=== PATIENT | female | born 1940 | race African-American/Black ===

== ENCOUNTER 2017-09-23 06:48 | Inpatient (IN) | payer MEDICARE, MEDICAID ==
[2017-09-23] VITALS (22 sets, daily range): BP systolic 102–172; BP diastolic 48–80
[~2017-09-23] VITALS: Ht 157.5 cm; Wt 68.0 kg
[~2017-09-23 06:48] MED LIST: ASPI-986 PO; DIGO125T82 PO; HYDR-523 PO; ISOS30TA6 PO; NIAC500T2 PO; RANO10003 PO; ROSU10TA PO; SOTA80TA PO
[2017-09-23] MEDS ORDERED: IODIXANOL 320MG/ML 200ML BOTTLE ONE (07:44)
[2017-09-23] MEDS ORDERED: LIDOCAINE HCL 1% 20ML VIAL (Pyxis) INJ ONE (07:44)
[2017-09-23] MEDS ORDERED: MIDAZOLAM HCL 2 MG/2 ML VIAL ONE (07:56)
[2017-09-23] MEDS ORDERED: FENTANYL CITRATE/PF 50MCG/ML 2ML VIAL ONE ×2 (07:57→09:38)
[2017-09-23] MEDS ORDERED: ATROPINE SULFATE 0.1MG/ML 10ML DISP.SYRIN ONE (08:25)
[2017-09-23] MEDS ORDERED: IOVERSOL 240MG/ML 100ML BOTTLE IV ONE (08:59)
[2017-09-23] MEDS ORDERED: ASPIRIN 325MG TABLET ONE (09:41)
[2017-09-23] MEDS ORDERED: CLOPIDOGREL 75MG TABLET ONE (09:41)
[2017-09-23] MEDS ORDERED: HEPARIN SODIUM 1,000 UNIT/1ML VIAL IV ONE (10:02)
[2017-09-23] MEDS ORDERED: NICARDIPINE 100MCG/ML 10ML VIAL (CATH LAB) IV ONE (10:02)
[2017-09-23] MEDS ORDERED: NITROGLYCERIN 50MCG/ML 10ML VIAL (CATH LAB) IV ONE (10:02)
[2017-09-23] MEDS ORDERED: PHENYLEPHRINE 100MCG/ML 10ML VIAL (CATH LAB) IV ONE (10:02)
[2017-09-23] MEDS ORDERED: MAGNESIUM/ALUMINUM HYDROXIDE/SIMETHICONE 30ML UDC PO PRN (10:45)
[2017-09-23] MEDS ORDERED: DEXTROSE 50% WATER 50ML SYRINGE IV PRN (11:45)
[2017-09-23] MEDS: INSULIN LISPRO 100 UNITS/ML SUBCUT SCH ×3 (12:20→21:00)
[2017-09-23] MEDS: BLOOD SUGAR DIAGNOSTIC STRIP TEST SCH ×3 (12:24→21:20)
[2017-09-23] MEDS ORDERED: CLONIDINE 0.1MG TABLET PO NR (12:30)
[2017-09-23] MEDS ORDERED: CLOP75TA16 PO (14:55)
[2017-09-23] MEDS ORDERED: GLIP5TAB12 PO (14:55)
[2017-09-23] MEDS ORDERED: ROSU5TAB PO (14:55)
[2017-09-23] MEDS ORDERED: CLONIDINE 0.1MG TABLET PO PRN (15:00)
[2017-09-23] MEDS ORDERED: ZOLPIDEM TARTRATE 5MG TABLET PO PRN (22:30)
[2017-09-23] MEDS ORDERED: MORPHINE SULFATE 4 MG/ML CPJ (NOT FOR IM USE) IV PRN (22:30)
[2017-09-24] VITALS (10 sets, daily range): BP systolic 112–155; BP diastolic 48–78
[2017-09-24] MEDS: BLOOD SUGAR DIAGNOSTIC STRIP TEST SCH ×2 (06:42→11:16)
[2017-09-24] MEDS: INSULIN LISPRO 100 UNITS/ML SUBCUT SCH ×2 (06:43→12:02)
[2017-09-24 07:07] LABS: BASOPHILS % 0.5 % (0.0-2.0); EOSINOPHILS % 1.6 % (0.0-5.0); HEMATOCRIT. 32.6 % (36.0-48.0); HEMOGLOBIN. 11.4 g/dL (12.0-16.0); LYMPHOCYTES % 16.6 % (20.0-50.0); MEAN CORPUSCULAR HEMOGLOBIN 32.1 pg (28.0-32.0); MEAN CORPUSCULAR VOLUME 92.2 fL (81.0-99.0); MEAN PLATELET VOLUME 7.9 fl (7.4-10.4); MONOCYTES % 12.5 % (2.0-8.0); NEUTROPHILS % 68.8 % (40.0-76.0); PLATELET 115 x1000/uL (130-400); RED BLOOD CELL COUNT 3.54 mill/uL (4.2-5.4); RED CELL DISTRIBUTION WIDTH 13.3 % (11.6-14.6)
[2017-09-24 07:48] LABS: CHLORIDE 107 mEq/L (98-107)
[2017-09-24] MEDS ORDERED: ASPI-1158 PO (08:01)
[2017-09-24] MEDS ORDERED: CLOPIDOGREL 75MG TABLET PO SCH (09:00)
[2017-09-24] MEDS ORDERED: ASPIRIN 81MG TABLET PO SCH (09:00)
== END 2017-09-24 13:50 | disposition home or self-care (01) | DRG 215 ==
LOC: CCL 06:48 → 3WST 06:49
PROVIDERS: ADMIT Specialist; ATTEND Specialist
PROC: 027034Z Dilation of Coronary Artery, One Artery with Drug-eluting Intraluminal Device, Percutaneous Approach (ICD-10-PCS; principal; 2017-09-23)
PROC: 5A0221D Assistance with Cardiac Output using Impeller Pump, Continuous (ICD-10-PCS; 2017-09-23)
PROC: B2111ZZ Fluoroscopy of Multiple Coronary Arteries using Low Osmolar Contrast (ICD-10-PCS; 2017-09-23)
PROC: 4A023N7 Measurement of Cardiac Sampling and Pressure, Left Heart, Percutaneous Approach (ICD-10-PCS; 2017-09-23)
PROC: 02HA3RJ Insertion of Short-term External Heart Assist System into Heart, Intraoperative, Percutaneous Approach (ICD-10-PCS; 2017-09-23)
DX: I25.110 Atherosclerotic heart disease of native coronary artery with unstable angina pectoris (principal); E11.9 Type 2 diabetes mellitus without complications; E78.5 Hyperlipidemia, unspecified; I10 Essential (primary) hypertension; Z88.2 Allergy status to sulfonamides
CPT/HCPCS: 33990; 36415; 80048; 82962; 85025; 85347; 93005; 93458; C1725; C1726; C1760; C1769; C1887; C1893; J0461; J1644; J1815; J2250; J2370; J3010; J3490; Q9967

== ENCOUNTER 2020-02-06 16:19 | Inpatient (IN) | payer MEDICARE ==
[~2020-02-06] VITALS: Ht 157.5 cm; Wt 63.0 kg
[~2020-02-06 16:19] MED LIST changes: +ASPI-1158 PO; -ASPI-986 PO; +ATOR20TA65 MT; +CLOP75TA4 PO; +DIGO125T80 PO; -DIGO125T82 PO; +FOLI-43 MT; +GLIP5TAB12 PO; +GLYB5TAB7 MT; -NIAC500T2 PO; +POTA20TA12 MT; -ROSU10TA PO; +[UNRECOGNIZED DRUG - CODE] PO
[2020-02-06] MEDS ORDERED: ASPIRIN 81MG TABLET PO ONE (17:15)
[2020-02-06 17:33] LABS: EOSINOPHILS % 2.4 % (0.0-5.0); HEMATOCRIT. 32.9 % (36.0-48.0); HEMOGLOBIN. 11.2 g/dL (12.0-16.0); MEAN CORPUSCULAR HEMOGLOBIN 28.6 pg (28.0-32.0); MEAN CORPUSCULAR VOLUME 83.8 fL (81.0-99.0); MEAN PLATELET VOLUME 7.6 fl (7.4-10.4); MONOCYTES % 13.5 % (2.0-8.0); NEUTROPHILS % 57.1 % (40.0-76.0); PLATELET 162 x1000/uL (130-400); RED BLOOD CELL COUNT 3.92 mill/uL (4.2-5.4); RED CELL DISTRIBUTION WIDTH 13.9 % (11.6-14.6)
[2020-02-06 17:41] LABS: CHLORIDE 108 mEq/L (98-107)
[2020-02-06 17:45] LABS: D-DIMER 3.69 mg/L FEU (<0.50); INR 1.1; PARTIAL THROMBOPLASTIN TIME 26.8 sec (23.4-31.0); PROTHROMBIN TIME 11.2 sec (9.6-11.0)
[2020-02-06] MEDS ORDERED: IOHEXOL-350 100 ML BOTTLE ONE (18:59)
[2020-02-06] MEDS ORDERED: DEXTROSE 50% WATER 50ML SYRINGE IV ONE (20:00)
[2020-02-06] MEDS ORDERED: ONDANSETRON HCL 4MG/2ML INJ IV PRN (22:15)
[2020-02-06] MEDS ORDERED: IPRATROPIUM/ALBUTEROL 0.5-3(2.5)MG/3ML NEB HHN PRN (22:15)
[2020-02-06] MEDS ORDERED: ACETAMINOPHEN 325MG TABLET PO PRN (22:15)
[2020-02-06] MEDS ORDERED: HYDROCODONE/ACETAMINOPHEN 5/325MG TABLET PO PRN (22:15)
[2020-02-07] VITALS (20 sets, daily range): BP systolic 140–202; BP diastolic 62–109
[2020-02-07 05:26] LABS: CHLORIDE 109 mEq/L (98-107)
[2020-02-07 05:29] LABS: HEMATOCRIT. 32.8 % (36.0-48.0); HEMOGLOBIN. 11.3 g/dL (12.0-16.0); MEAN CORPUSCULAR HEMOGLOBIN 28.6 pg (28.0-32.0); MEAN CORPUSCULAR VOLUME 82.8 fL (81.0-99.0); MEAN PLATELET VOLUME 7.5 fl (7.4-10.4); PLATELET 162 x1000/uL (130-400); RED BLOOD CELL COUNT 3.96 mill/uL (4.2-5.4); RED CELL DISTRIBUTION WIDTH 14.5 % (11.6-14.6)
[2020-02-07 05:38] LABS: LDL CHOLESTEROL 65 mg/dL (5-100)
[2020-02-07 05:39] LABS: CREATINE KINASE 35 IU/L (26-192); HDL CHOLESTEROL 34 mg/dL (40-59); T4 FREE 1.49 ng/dL (0.76-1.46)
[2020-02-07] MEDS: ASPIRIN 81MG EC TABLET PO SCH (08:15)
[2020-02-07] MEDS ORDERED: NICARDIPINE 100MCG/ML 10ML VIAL (CATH LAB) IV ONE (11:07)
[2020-02-07] MEDS ORDERED: NITROGLYCERIN 50MCG/ML 10ML VIAL (CATH LAB) IV ONE (11:07)
[2020-02-07] MEDS ORDERED: HEPARIN SODIUM 1,000 UNIT/1ML VIAL IV ONE (11:07)
[2020-02-07 11:44] LABS: PLATELET ESTIMATE NORMAL
[2020-02-07] MEDS ORDERED: DEXTROSE 50% WATER 50ML SYRINGE IV PRN (13:15)
[2020-02-07] MEDS ORDERED: HYDRALAZINE 20MG/ML VIAL IV PRN (14:15)
[2020-02-07] MEDS ORDERED: MIDAZOLAM HCL 2 MG/2 ML VIAL ONE (14:30)
[2020-02-07] MEDS ORDERED: LIDOCAINE HCL 1% 20ML VIAL (Pyxis) INJ ONE (14:30)
[2020-02-07] MEDS ORDERED: FENTANYL CITRATE/PF 50MCG/ML 2ML VIAL ONE (14:30)
[2020-02-07] MEDS ORDERED: IOHEXOL-300 100 ML BOTTLE ONE (14:33)
[2020-02-07] MEDS ORDERED: LORAZEPAM 2MG/ML CPJ IV PRN (14:45)
[2020-02-07] MEDS ORDERED: IPRATROPIUM/ALBUTEROL 0.5-3(2.5)MG/3ML NEB HHN PRN (14:45)
[2020-02-07] MEDS ORDERED: DEXT 5%/0.45% NACL 1000ML 1,000 ML IV SCH (14:45)
[2020-02-07] MEDS ORDERED: BISACODYL 10MG SUPP PR PRN (14:45)
[2020-02-07] MEDS ORDERED: LACTULOSE 20G/30ML UDC PO PRN (14:45)
[2020-02-07 14:48] LABS: CREATINE KINASE 38 IU/L (26-192)
[2020-02-07] MEDS ORDERED: IODIXANOL 320MG/ML 100 ML BOTTLE IV ONE ×2 (15:35→15:44)
[2020-02-07] MEDS ORDERED: ACETAMINOPHEN 325MG TABLET PO PRN (16:00)
[2020-02-07] MEDS ORDERED: SODIUM CHLORIDE 0.45% 1,000 ML IV SCH (16:00)
[2020-02-07] MEDS ORDERED: ATROPINE SULFATE 1MG/10ML SYR IV PRN (16:00)
[2020-02-07] MEDS ORDERED: MORPHINE SULFATE 2 MG/ML CPJ (NOT FOR IM USE) IV PRN ×2 (16:00)
[2020-02-07] MEDS ORDERED: CLOPIDOGREL 75MG TABLET ONE (16:06)
[2020-02-07] MEDS: FAMOTIDINE 20MG/2ML VIAL IV SCH (16:24)
[2020-02-07] MEDS: BLOOD SUGAR DIAGNOSTIC STRIP TEST SCH ×2 (16:31→21:53)
[2020-02-07] MEDS: INSULIN LISPRO 100 UNITS/ML SUBCUT SCH ×2 (16:32→21:00)
[2020-02-07] MEDS ORDERED: ATORVASTATIN CALCIUM 40MG TABLET PO SCH (21:00)
[2020-02-07] MEDS: SOTALOL HCL 80MG TABLET PO SCH (21:27)
[2020-02-08] VITALS (10 sets, daily range): BP systolic 137–155; BP diastolic 53–68
[2020-02-08] MEDS: BLOOD SUGAR DIAGNOSTIC STRIP TEST SCH ×2 (06:50→11:36)
[2020-02-08] MEDS: INSULIN LISPRO 100 UNITS/ML SUBCUT SCH ×2 (07:20→12:12)
[2020-02-08 07:43] LABS: CHLORIDE 104 mEq/L (98-107)
[2020-02-08 07:55] LABS: BASOPHILS % 0.3 % (0.0-2.0); EOSINOPHILS % 1.1 % (0.0-5.0); HEMATOCRIT. 35.3 % (36.0-48.0); HEMOGLOBIN. 12.2 g/dL (12.0-16.0); LYMPHOCYTES % 17.9 % (20.0-50.0); MEAN CORPUSCULAR HEMOGLOBIN 28.9 pg (28.0-32.0); MEAN CORPUSCULAR VOLUME 83.4 fL (81.0-99.0); MEAN PLATELET VOLUME 7.7 fl (7.4-10.4); MONOCYTES % 11.8 % (2.0-8.0); NEUTROPHILS % 68.9 % (40.0-76.0); PLATELET 167 x1000/uL (130-400); RED BLOOD CELL COUNT 4.24 mill/uL (4.2-5.4); RED CELL DISTRIBUTION WIDTH 14.1 % (11.6-14.6)
[2020-02-08] MEDS: ASPIRIN 81MG EC TABLET PO SCH (08:25)
[2020-02-08] MEDS: FAMOTIDINE 20MG/2ML VIAL IV SCH (08:25)
[2020-02-08] MEDS: SOTALOL HCL 80MG TABLET PO SCH (08:25)
[2020-02-08] MEDS ORDERED: CLOPIDOGREL 75MG TABLET PO SCH (09:00)
== END 2020-02-08 15:59 | disposition home or self-care (01) | DRG 247 ==
LOC: ER 16:19 → MICUSO 18:49 → 3WST 02-07 13:17
PROVIDERS: ADMIT Internal Medicine; ATTEND Internal Medicine
PROC: 4A023N7 Measurement of Cardiac Sampling and Pressure, Left Heart, Percutaneous Approach (ICD-10-PCS; principal; 2020-02-07)
PROC: 027034Z Dilation of Coronary Artery, One Artery with Drug-eluting Intraluminal Device, Percutaneous Approach (ICD-10-PCS; 2020-02-07)
PROC: B2111ZZ Fluoroscopy of Multiple Coronary Arteries using Low Osmolar Contrast (ICD-10-PCS; 2020-02-07)
PROC: B2131ZZ Fluoroscopy of Multiple Coronary Artery Bypass Grafts using Low Osmolar Contrast (ICD-10-PCS; 2020-02-07)
PROC: B2151ZZ Fluoroscopy of Left Heart using Low Osmolar Contrast (ICD-10-PCS; 2020-02-07)
PROC: B2181ZZ Fluoroscopy of Left Internal Mammary Bypass Graft using Low Osmolar Contrast (ICD-10-PCS; 2020-02-07)
DX: I25.10 Atherosclerotic heart disease of native coronary artery without angina pectoris (principal); I10 Essential (primary) hypertension; E78.5 Hyperlipidemia, unspecified; E11.65 Type 2 diabetes mellitus with hyperglycemia; E11.649 Type 2 diabetes mellitus with hypoglycemia without coma; D64.9 Anemia, unspecified; E05.90 Thyrotoxicosis, unspecified without thyrotoxic crisis or storm; M19.90 Unspecified osteoarthritis, unspecified site; Z95.1 Presence of aortocoronary bypass graft; Z79.02 Long term (current) use of antithrombotics/antiplatelets; Z79.84 Long term (current) use of oral hypoglycemic drugs; Z79.899 Other long term (current) drug therapy; Z95.810 Presence of automatic (implantable) cardiac defibrillator; G62.9 Polyneuropathy, unspecified; Z90.49 Acquired absence of other specified parts of digestive tract; Z88.2 Allergy status to sulfonamides; Z88.8 Allergy status to other drugs, medicaments and biological substances; Z79.1 Long term (current) use of non-steroidal anti-inflammatories (NSAID)
CPT/HCPCS: 36415; 71045; 71275; 80048; 80053; 80061; 80162; 82550; 82962; 83036; 83880; 84439; 84443; 84484; 85025; 85347; 85379; 92928; 93005; 93306; 93459; 99285; C1760; C1769; C1874; C1887; J0360; J1644; J1815; J2250; J2270; J2405; J3010; J3490; Q9967

== ENCOUNTER 2021-08-03 15:10 | Inpatient (IN) | payer MEDICARE, MEDICAID ==
[~2021-08-03] VITALS: Ht 157.5 cm; Wt 63.5 kg
[~2021-08-03 15:10] MED LIST changes: -ASPI-1158 PO; +ASPI-1406 PO; +CLOP-31 PO; -CLOP75TA4 PO; -ISOS30TA6 PO; +ISOS30TA91 PO
[2021-08-03] MEDS ORDERED: ACETAMINOPHEN 325MG TABLET PO ONE (15:45)
[2021-08-03] MEDS ORDERED: TETANUS, DIPHTHERIA, PERTUSSIS VAC/PF 0.5ML (>10YR OLD) IM ONE (16:15)
[2021-08-03] MEDS ORDERED: CEPHALEXIN 250MG CAPSULE PO ONE (17:00)
[2021-08-03 17:39] LABS: BASOPHILS % 0.9 % (0.0-2.0); EOSINOPHILS % 4.2 % (0.0-5.0); HEMATOCRIT. 35.1 % (36.0-48.0); HEMOGLOBIN. 11.8 g/dL (12.0-16.0); MEAN CORPUSCULAR HEMOGLOBIN 30.4 pg (28.0-32.0); MEAN CORPUSCULAR VOLUME 90.6 fL (81.0-99.0); MEAN PLATELET VOLUME 8.3 fl (7.4-10.4); MONOCYTES % 11.4 % (2.0-8.0); NEUTROPHILS % 65.5 % (40.0-76.0); PLATELET 103 x1000/uL (130-400); RED BLOOD CELL COUNT 3.87 mill/uL (4.2-5.4); RED CELL DISTRIBUTION WIDTH 13.1 % (11.6-14.6)
[2021-08-03 17:45] LABS: CHLORIDE 107 mEq/L (98-107)
[2021-08-03 18:56] LABS: CLARITY URINE CLEAR (CLEAR); COLOR URINE YELLOW (YELLOW); KETONES URINE NEGATIVE (NEGATIVE); LEUKOCYTE ESTERASE URINE NEGATIVE (NEGATIVE); NITRITE URINE NEGATIVE (NEGATIVE); OCCULT BLOOD URINE NEGATIVE (NEGATIVE); PH URINE 7.5 (4.5-8.0); PROTEIN URINE TRACE (NEGATIVE); SPECIFIC GRAVITY URINE 1.007 (1.005-1.030); UROBILINOGEN URINE 0.2 E.U./dL (0.2-1.0)
[2021-08-03] MEDS ORDERED: DEXTROSE 50% WATER 50ML SYRINGE IV PRN (21:30)
[2021-08-03] MEDS: INSULIN LISPRO (LOW DOSE) 100 UNITS/ML SUBCUT SCH (21:30)
[2021-08-03] MEDS: BLOOD SUGAR DIAGNOSTIC STRIP TEST SCH (21:36)
[2021-08-03] MEDS: ACETAMINOPHEN 325MG TABLET PO PRN (23:26)
[2021-08-04 09:30] VITALS: BP 160/74
[2021-08-04 10:19] VITALS: BP 150/68
[2021-08-04] MEDS ORDERED: HYDROCODONE/ACETAMINOPHEN 5/325MG TABLET PO SCH (10:30)
[2021-08-04] MEDS: ACETAMINOPHEN 325MG TABLET PO PRN (10:43)
[2021-08-04] MEDS ORDERED: NALOXONE HCL 0.4MG/ML VIAL IV PRN (10:45)
[2021-08-04] MEDS ORDERED: DOCUSATE SODIUM 100MG CAPSULE PO PRN (11:30)
[2021-08-04] MEDS ORDERED: ACETAMINOPHEN 650MG SUPP PR PRN (11:30)
[2021-08-04] MEDS ORDERED: DIPHENHYDRAMINE 50MG/ML VIAL IV PRN (11:30)
[2021-08-04] MEDS ORDERED: ACETAMINOPHEN 650MG/20.3ML UDC GT PRN (11:30)
[2021-08-04] MEDS ORDERED: CLONIDINE 0.1MG TABLET PO PRN (11:30)
[2021-08-04] MEDS ORDERED: HYDROCODONE/ACETAMINOPHEN 5/325MG TABLET PO PRN (11:30)
[2021-08-04] MEDS ORDERED: LORAZEPAM 0.5MG TABLET PO PRN (11:30)
[2021-08-04] MEDS ORDERED: ONDANSETRON HCL 4MG/2ML INJ IV PRN (11:30)
[2021-08-04] MEDS ORDERED: NA PHOS,M-B/NA PHOS,DI-BA ENEMA 118ML PR PRN (11:30)
[2021-08-04] MEDS ORDERED: MAGNESIUM/ALUMINUM HYDROXIDE/SIMETHICONE 30ML UDC PO PRN (11:30)
[2021-08-04] MEDS ORDERED: GUAIFENESIN 200MG/10ML SUGAR FREE UDC PO PRN (11:30)
[2021-08-04] MEDS ORDERED: MORPHINE SULFATE 2 MG/ML CPJ (NOT FOR IM USE) IV PRN (11:30)
[2021-08-04] MEDS ORDERED: IPRATROPIUM/ALBUTEROL 0.5-3(2.5)MG/3ML NEB NEB PRN (11:30)
[2021-08-04] MEDS: BLOOD SUGAR DIAGNOSTIC STRIP TEST SCH ×4 (11:43→21:09)
[2021-08-04 12:00] VITALS: BP 115/67
[2021-08-04] MEDS: INSULIN LISPRO (LOW DOSE) 100 UNITS/ML SUBCUT SCH ×3 (12:50→21:00)
[2021-08-04] MEDS: ENOXAPARIN 40MG/0.4ML SYR SUBCUT SCH (12:53)
[2021-08-04] MEDS: HYDROCODONE/ACETAMINOPHEN 5/325MG TABLET PO PRN (15:26)
[2021-08-04 16:00] VITALS: BP 139/72
[2021-08-04 17:30] LABS: INR 1.1; PROTHROMBIN TIME 11.5 sec (9.6-11.0)
[2021-08-04] MEDS: DIGOXIN 125MCG TABLET PO SCH (18:05)
[2021-08-04 20:00] VITALS: BP 164/70
[2021-08-04] MEDS ORDERED: FAMOTIDINE 20MG TABLET PO SCH (21:00)
[2021-08-04] MEDS ORDERED: ATORVASTATIN CALCIUM 20MG TABLET PO SCH (21:00)
[2021-08-04] MEDS: SOTALOL HCL 80MG TABLET PO SCH (21:08)
[2021-08-04 23:15] VITALS: BP 155/70
[2021-08-05] VITALS: BP 168/67
[2021-08-05 04:00] VITALS: BP 144/60
[2021-08-05] MEDS: HYDROCODONE/ACETAMINOPHEN 5/325MG TABLET PO PRN (05:39)
[2021-08-05 06:55] LABS: PROTHROMBIN TIME 11.2 sec (9.6-11.0)
[2021-08-05 07:02] LABS: BASOPHILS % 0.5 % (0.0-2.0); EOSINOPHILS % 2.9 % (0.0-5.0); HEMATOCRIT. 37.8 % (36.0-48.0); HEMOGLOBIN. 12.8 g/dL (12.0-16.0); LYMPHOCYTES % 12.1 % (20.0-50.0); MEAN CORPUSCULAR HEMOGLOBIN 30.7 pg (28.0-32.0); MEAN CORPUSCULAR VOLUME 90.8 fL (81.0-99.0); MEAN PLATELET VOLUME 8.8 fl (7.4-10.4); MONOCYTES % 12.1 % (2.0-8.0); NEUTROPHILS % 72.4 % (40.0-76.0); PLATELET 99 x1000/uL (130-400); RED BLOOD CELL COUNT 4.17 mill/uL (4.2-5.4); RED CELL DISTRIBUTION WIDTH 13.1 % (11.6-14.6)
[2021-08-05 07:13] LABS: CHLORIDE 107 mEq/L (98-107)
[2021-08-05 07:22] LABS: LDL CHOLESTEROL 80 mg/dL (5-100)
[2021-08-05 07:25] LABS: HDL CHOLESTEROL 39 mg/dL (40-59); T4 FREE 1.12 ng/dL (0.76-1.46)
[2021-08-05] MEDS: BLOOD SUGAR DIAGNOSTIC STRIP TEST SCH ×3 (07:52→18:18)
[2021-08-05 08:00] VITALS: BP 150/72
[2021-08-05] MEDS ORDERED: ISOSORBIDE MONONITRATE 30MG TABLET SR 24HR PO SCH (09:00)
[2021-08-05] MEDS ORDERED: ASPIRIN 81MG EC TABLET PO SCH (09:00)
[2021-08-05] MEDS ORDERED: CLOPIDOGREL 75MG TABLET PO SCH (09:00)
[2021-08-05] MEDS ORDERED: FOLIC ACID 1MG TABLET PO SCH (09:00)
[2021-08-05] MEDS: SOTALOL HCL 80MG TABLET PO SCH (09:37)
[2021-08-05] MEDS: INSULIN LISPRO (LOW DOSE) 100 UNITS/ML SUBCUT SCH ×3 (09:50→17:50)
[2021-08-05 12:00] VITALS: BP 144/54
[2021-08-05] MEDS: ENOXAPARIN 40MG/0.4ML SYR SUBCUT SCH (12:00)
[2021-08-05 16:00] VITALS: BP 110/64
[2021-08-05] MEDS: DIGOXIN 125MCG TABLET PO SCH ×2 (18:00→18:17)
[2021-08-05 18:27] VITALS: BP 110/64
== END 2021-08-05 19:02 | disposition home or self-care (01) | DRG 563 ==
LOC: ER 15:10 → 6EST 18:55 → EDBEDREQ 19:05 → ENRESERV 08-04 07:19
PROVIDERS: ADMIT Internal Medicine; ATTEND Internal Medicine
PROC: 2W3EX1Z Immobilization of Right Hand using Splint (ICD-10-PCS; principal; 2021-08-03)
DX: S62.306A Unspecified fracture of fifth metacarpal bone, right hand, initial encounter for closed fracture (principal); M19.90 Unspecified osteoarthritis, unspecified site; I10 Essential (primary) hypertension; E11.9 Type 2 diabetes mellitus without complications; M10.9 Gout, unspecified; M11.9 Crystal arthropathy, unspecified; I25.10 Atherosclerotic heart disease of native coronary artery without angina pectoris; D64.9 Anemia, unspecified; W22.8XXA Striking against or struck by other objects, initial encounter; Y92.094 Garage of other non-institutional residence as the place of occurrence of the external cause; Y99.8 Other external cause status; Z95.5 Presence of coronary angioplasty implant and graft; Z95.1 Presence of aortocoronary bypass graft; Y93.89 Activity, other specified; Z79.899 Other long term (current) drug therapy; Z88.2 Allergy status to sulfonamides; Z79.82 Long term (current) use of aspirin; Z79.02 Long term (current) use of antithrombotics/antiplatelets; I25.2 Old myocardial infarction; Z95.0 Presence of cardiac pacemaker; Z82.49 Family history of ischemic heart disease and other diseases of the circulatory system
CPT/HCPCS: 36415; 71045; 73130; 73200; 80053; 80061; 81003; 82962; 83036; 84439; 84443; 84550; 85025; 90715; 93005; 93970; 97162; 99285; J1650; J1815